=== PATIENT | female | born 1980 | race Caucasian/White ===

== ENCOUNTER → 2016-06-29 | Outpatient (CLI) | payer BC ==
[~2016-06-29] MED LIST: BACTRIM DS 8001 TAB PO; BACTRIM DS TAB1 EACH PO; CHERATUSSIN AC 15 ML PO; CYCLOBENZAPRINE10 M1 PO; DELTASONE20 M1 PO; FLEXERIL 1010 MG/TAB PO; FLOVENT DI100 MCG/Ac IH; GUAIFEN/CODEIN120 ML PO; IPRATROPIUM BROM3 M1 IH; KETOROLAC TROME10 MG PO; LANSOPRAZOLE30 MG PO; LISINOPRIL10 MG PO; MACROBID 100 M100 MG PO; MACRODANTIN50 M1 PO; MELOXICAM15 MG PO; MELOXICAM7.5 MG PO; MIRALAX17 GM/DOSE PO; MOBIC7.5 MG PO; NORCO 325 MG-51 TAB PO; PERCOCET 325 MG1 TA2 PO; PERCOCET 325 MG1 TA4 PO; PREDNISONE10 MG PO; PREDNISONE20 M1 PO; PRILOSEC 20MG20 MG PO; PROVENTIL0.09 MG/A1 IH; PULMICORT0.5 MG/2 M IH; PULMICORT90 MCG/Ac1 IH; ROXICODONE 55 MG/TAB PO; RT ALBUTEROL CC18 GM IH; SIMVASTATIN20 MG PO; VENTOLIN0.09 MG IH; ZITHROMAX 250M250 MG PO; ZITHROMAX Z PA250 MG PO
== END ==
LOC: RAD 09:50
DX: M25.512 Pain in left shoulder (principal); M12.9 Arthropathy, unspecified

== ENCOUNTER 2016-07-03 01:07 | Emergency (ER) | payer BC ==
[~2016-07-03 01:07] MED LIST changes: -BACTRIM DS TAB1 EACH PO; -CYCLOBENZAPRINE10 M1 PO; -FLEXERIL 1010 MG/TAB PO; -FLOVENT DI100 MCG/Ac IH; -LISINOPRIL10 MG PO; -MOBIC7.5 MG PO; -PREDNISONE20 M1 PO
[2016-07-03] MEDS ORDERED: CYCLOBENZAPRINE10 M1 PO (02:52)
[2016-07-03] MEDS ORDERED: FLEXERIL 1010 MG/TAB PO (02:52)
[2016-07-03 03:03] VITALS: BP 159/109
== END 2016-07-03 03:03 | disposition home or self-care (01) ==
LOC: ED 01:07
DX: M54.5 Low back pain (principal); R35.1 Nocturia

== ENCOUNTER → 2016-07-07 | Outpatient (CLI) | payer BC ==
[~2016-07-07] MED LIST changes: +BACTRIM DS TAB1 EACH PO; +CYCLOBENZAPRINE10 M1 PO; +FLEXERIL 1010 MG/TAB PO; +FLOVENT DI100 MCG/Ac IH; +LISINOPRIL10 MG PO; +MOBIC7.5 MG PO; +PREDNISONE20 M1 PO
== END ==
LOC: RAD 12:34
DX: N39.0 Urinary tract infection, site not specified (principal)

== ENCOUNTER 2016-07-29 16:22 | Emergency (ER) | payer BC ==
[~2016-07-29 16:22] MED LIST changes: -BACTRIM DS TAB1 EACH PO; -FLOVENT DI100 MCG/Ac IH; -LISINOPRIL10 MG PO; -MOBIC7.5 MG PO; -PREDNISONE20 M1 PO
[2016-07-29] MEDS ORDERED: MOBIC7.5 MG PO (17:00)
[2016-07-29] MEDS ORDERED: LISINOPRIL10 MG PO (17:00)
== END 2016-07-29 17:06 | disposition home or self-care (01) ==
LOC: ED 16:22
DX: I10 Essential (primary) hypertension (principal); M72.2 Plantar fascial fibromatosis

== ENCOUNTER → 2016-09-06 | Outpatient (CLI) | payer BC ==
[~2016-09-06] MED LIST changes: +BACTRIM DS TAB1 EACH PO; +FLOVENT DI100 MCG/Ac IH; +LISINOPRIL10 MG PO; +MOBIC7.5 MG PO; +PREDNISONE20 M1 PO
== END ==
LOC: LAB 07:49
DX: R73.9 Hyperglycemia, unspecified (principal); O24.419 Gestational diabetes mellitus in pregnancy, unspecified control; E66.01 Morbid (severe) obesity due to excess calories

== ENCOUNTER → 2016-10-10 | Outpatient (CLI) | payer BC ==
[2016-07-29 17:12] VITALS: BP 160/119
== END ==
LOC: LAB 18:28
DX: N30.01 Acute cystitis with hematuria (principal); B96.20 Unspecified Escherichia coli [E. coli] as the cause of diseases classified elsewhere

== ENCOUNTER 2016-10-19 22:23 | Emergency (ER) | payer BC ==
[~2016-10-19] VITALS: Ht 165.1 cm; Wt 135.5 kg
[~2016-10-19 22:23] MED LIST changes: -BACTRIM DS TAB1 EACH PO; -FLOVENT DI100 MCG/Ac IH; -PREDNISONE20 M1 PO
[2016-10-19 23:07] VITALS: BP 149/100
[2016-10-19] MEDS ORDERED: BACTRIM DS TAB1 EACH PO (23:07)
== END 2016-10-19 23:07 | disposition home or self-care (01) ==
LOC: ED 22:23
DX: L03.116 Cellulitis of left lower limb (principal); Z87.828 Personal history of other (healed) physical injury and trauma

== ENCOUNTER 2016-11-15 17:04 | Emergency (ER) | payer BC ==
[~2016-11-15] VITALS: Ht 165.1 cm; Wt 135.5 kg
[~2016-11-15 17:04] MED LIST changes: +BACTRIM DS TAB1 EACH PO
[2016-11-15] MEDS ORDERED: FLOVENT DI100 MCG/Ac IH (17:24)
[2016-11-15] MEDS ORDERED: PREDNISONE20 M1 PO (17:53)
[2016-11-15] MEDS ORDERED: IPRATROPIUM BROM3 M1 IH (17:54)
[2016-11-15 18:14] VITALS: BP 145/76
== END 2016-11-15 18:15 | disposition home or self-care (01) ==
LOC: ED 17:04
DX: J44.0 Chronic obstructive pulmonary disease with (acute) lower respiratory infection (principal); J20.9 Acute bronchitis, unspecified; J01.00 Acute maxillary sinusitis, unspecified; I10 Essential (primary) hypertension; F17.210 Nicotine dependence, cigarettes, uncomplicated; R51 Headache; R05 Cough
CPT/HCPCS: J1885; J7512

== ENCOUNTER → 2016-12-15 | Outpatient (CLI) | payer BC ==
[2016-11-15 18:14] VITALS: BP 145/76
[~2016-12-15] MED LIST changes: +FLOVENT DI100 MCG/Ac IH; +PREDNISONE20 M1 PO
== END ==
LOC: LAB 13:23
DX: Z51.81 Encounter for therapeutic drug level monitoring (principal); Z79.01 Long term (current) use of anticoagulants; Z01.812 Encounter for preprocedural laboratory examination

== ENCOUNTER → 2016-12-15 | Outpatient (CLI) | payer BC ==
[2016-11-15 18:14] VITALS: BP 145/76
== END ==
LOC: PT 13:37

== ENCOUNTER 2017-01-05 13:00 | Outpatient (RCR) | payer BC | END 2017-01-12 12:03 | disposition still patient (30) | LOC: PT 13:00 | DX: Z47.89 Encounter for other orthopedic aftercare (principal) ==